=== PATIENT | female | born 1965 | race African-American/Black ===

== ENCOUNTER 2018-10-26 19:27 | Emergency (ER) | payer OTHER ==
[~2018-10-26] VITALS: Ht 165.1 cm; Wt 113.4 kg
[~2018-10-26 19:27] MED LIST: ADVAIR HFA 115-12 GM IH; ALBUTEROL INHAL17 GM IH; DOXYCYCLINE 10100 MG PO; NOHOMEMEDICATIONS; PREDNISONE 20 M20 MG PO; SINGULAIR 10 MG10 MG PO
[2018-10-26] MEDS ORDERED: VOLTAREN GEL 1100 G1 TOP (21:10)
[2018-10-26] MEDS ORDERED: ROBAXIN 750 MG750 M1 PO (21:10)
[2018-10-26 21:21] VITALS: BP 167/80
== END 2018-10-26 21:22 | disposition home or self-care (01) ==
LOC: ER 19:27
DX: S13.4XXA Sprain of ligaments of cervical spine, initial encounter (principal); S09.90XA Unspecified injury of head, initial encounter; J45.909 Unspecified asthma, uncomplicated; I42.9 Cardiomyopathy, unspecified; V87.7XXA Person injured in collision between other specified motor vehicles (traffic), initial encounter; Y92.89 Other specified places as the place of occurrence of the external cause; Y93.89 Activity, other specified; Y99.8 Other external cause status